=== PATIENT | male | born 1985 | race Caucasian/White ===

== ENCOUNTER 2019-07-17 07:43 | Day surgery (SDC) | payer BC ==
[2019-07-12 16:00] VITALS: BMI 33.9
[~2019-07-17 07:43] MED LIST: DEXAMETHASONE SOD PHOSPHATE 10 MG/ML 1 ML VIAL IV ONE; HEPARIN SODIUM,PORCINE 5,000 UNIT/ML 1 ML VIAL SQ ONE; LACTATED RINGERS 1,000 ML IV SCH; LIDOCAINE 1% 20 ML VIAL (10MG/ML) FOR IV START INTRADERMA PRN; MIDAZOLAM 2 MG/2 ML VIAL IV PRN; ONDANSETRON 4 MG/2 ML VIAL IVP ONE; SCOPOLAMINE 1.5MG/72HR PATCH TRANSDERM ONE
[2019-07-17] MEDS ORDERED: fentaNYL (PF) 50 MCG/ML 2 ML AMP IVP ONE (09:01)
--- NOTE | 2019-07-17 09:08 | P.GSHP ---
History of Present Illness H&P Date: 07/17/19 Chief Complaint: Incarcerated umbilical hernia This a 34-year-old male who presents today for laparoscopic robotic-assisted repair of incarcerated umbilical hernia. Past Medical History Past Medical History: Asthma, Hearing Disorder / Deafness Additional Past Medical History / Comment(s): Hx asthma as a child. "Moderate hearing loss." "Borderline hypertension." History of Any Multi-Drug Resistant Organisms: None Reported Past Surgical History: Adenoidectomy Additional Past Surgical History / Comment(s): Sinus surgery, vasectomy, vasectomy reversal. Past Anesthesia/Blood Transfusion Reactions: No Reported Reaction Past Psychological History: No Psychological Hx Reported Smoking Status: Never smoker Past Alcohol Use History: None Reported Past Drug Use History: None Reported - Past Family History Mother Family Medical History: No Reported History Medications and Allergies Home Medications Medication Instructions Recorded Confirmed Type Multivitamins, Thera [Multivitamin 1 tab PO DAILY 07/12/19 07/17/19 History (formulary)] [place]-3 Fatty Acids/Fish Oil [Fish 1 each PO DAILY 07/12/19 07/17/19 History Oil 1,000 mg Softgel] Allergies Allergy/AdvReac Type Severity Reaction Status Date / Time No Known Allergies Allergy Verified 07/17/19 07:59 Surgical - Exam Vital Signs Temp Pulse Resp BP Pulse Ox 98.3 F 84 18 134/73 96 07/17/19 08:05 07/17/19 08:05 07/17/19 08:05 07/17/19 08:05 07/17/19 08:05 - General well developed, well nourished, no distress - Eyes PERRL - ENT normal pinna - Neck no masses - Respiratory normal expansion - Cardiovascular Rhythm: regular - Abdomen Abdomen: soft, non tender Assessment and Plan Assessment: Incarcerated umbilical hernia. We'll perform laparoscopic robotic-assisted repair.
--- NOTE | 2019-07-17 09:28 | P.ANPRN ---
Procedure Note - Anesthesia - Nerve Block Performed Bilateral Rectus Abdominis Single Time Out Performed: Yes Date of Procedure: 07/17/19 Procedure Start Time: 08:42 Procedure Stop Time: 08:52 Location of Patient Procedure: PreOp Indication: Acute Post-Operative Pain, Requested by Surgeon Sedation Type: Sedate with meaningful contact maintained Preparation: Sterile Prep Position: Supine Catheter: None Needle Types: Pajunk Needle Gauge: 21 Ultrasound used to visualize needle placement: Yes Ultrasound used to observe medication spread: Yes Injectate: 0.5% Ropivacaine (see comment for volume) (20 cc + 2mg dexamethasone per side) Blood Aspirated: No Pain Paresthesia on Injection Noted: No Resistance on Injection: Normal Image Stored and Saved: Yes Events: Uneventful and Well Tolerated
[2019-07-17] MEDS ORDERED: LIDOCAINE 1% INJ 10MG/ML (20 ML MDV) ONE (09:30)
[2019-07-17] MEDS ORDERED: NEOSTIGMINE 1 MG/ML 10 ML VIAL ONE (09:30)
[2019-07-17] MEDS ORDERED: PROPOFOL 10 MG/ML 20 ML VIAL IV ONE (09:30)
[2019-07-17] MEDS ORDERED: MIDAZOLAM 2 MG/2 ML VIAL ONE (09:30)
[2019-07-17] MEDS ORDERED: ROCURONIUM BROMIDE 10 MG/ML 10 ML VIAL IV ONE (09:30)
[2019-07-17] MEDS ORDERED: DEXAMETHASONE SOD PHOSPHATE 4 MG/ML 1 ML VIAL ONE ×2 (09:30)
[2019-07-17] MEDS ORDERED: fentaNYL (PF) 50 MCG/ML 2 ML AMP ONE (09:30)
[2019-07-17] MEDS ORDERED: GLYCOPYRROLATE 0.2 MG/ML 2 ML VIAL ONE (09:30)
[2019-07-17] MEDS ORDERED: ROPIVACAINE 5 MG/ML 30 ML VIAL ONE ×2 (09:30)
[2019-07-17] MEDS ORDERED: LACTATED RINGERS 1,000 ML IV ONE ×2 (09:45)
[2019-07-17] MEDS ORDERED: BUPIVACAINE (PF) 0.25% 30 ML VIAL SQ ONE (10:02)
[2019-07-17 10:49] VITALS: TEMP 97.5
[2019-07-17] MEDS: HYDROmorphone 0.5 MG/0.5 ML SYRINGE IVP PRN ×2 (11:03→11:08)
--- NOTE | 2019-07-17 11:06 | P.OP ---
Date of Procedure: 07/17/19 Preoperative Diagnosis: Incarcerated umbilical hernia Postoperative Diagnosis: Incarcerated umbilical hernia Procedure(s) Performed: Laparoscopic robotic system repair of incarcerated umbilical hernia Anesthesia: KARSON Surgeon: Evan Stevenson Estimated Blood Loss (ml): 5 Pathology: other (Incarcerated omentum) Condition: stable Disposition: PACU Description of Procedure: The patient was placed on the operating table in the supine position. He received general anesthesia. His abdomen was prepped and draped usual fashion. Using a 5 mm optical trocar under direct visualization the peritoneal cavity was entered in the left upper quadrant. The abdomen was then insufflated. The laparoscope was placed back into the perineal cavity. Next a 8 mm robotic trocar was placed in the left lower quadrant and a 12 mm robotic trocar was placed in the left lateral position. The original 5 mm trocar was exchanged for a 8 mm robotic trocar. The patient's placed in the left side up position. And the patient was undocked the robot. The umbilical hernia was visualized. Using the cautery the incarcerated omentum was dissected free and transected. Using hook cautery the peritoneum over the umbilical hernia was excised. The fascial opening was repaired using 0V LOC sut ure. Next a piece of 11 cm round ventral light ST mesh was placed into the. Cavity and secured with 2 OV lock suture. The patient was undocked the robot. The needles were retrieved. The fascia of the 12 mm trocar site was closed with 0 Ethibond suture. Skin was closed interrupted 3-0 Monocryl suture. Dermabond dressings was applied. Patient top procedure well and was sent to recovery room stable condition.
[2019-07-17 12:53] VITALS: PULSE 67; RESP 18
[2019-07-17 12:54] VITALS: BP 123/60
== END 2019-07-17 12:56 | disposition home or self-care (01) ==
LOC: OR 07:43
PROVIDERS: ATTEND Surgery
DX: K42.0 Umbilical hernia with obstruction, without gangrene (principal); H91.90 Unspecified hearing loss, unspecified ear; R03.0 Elevated blood-pressure reading, without diagnosis of hypertension; Z98.52 Vasectomy status
CPT/HCPCS: 49653; S2900; 64488; 88302

== ENCOUNTER → 2019-08-07 | Outpatient (CLI) | payer BC ==
--- NOTE | 2019-08-07 11:08 | US ---
EXAMINATION TYPE: US abdomen limited DATE OF EXAM: 08/07/2019 COMPARISON: NONE CLINICAL HISTORY: R10.12 luq pain; Post surgical umbilical hernia. Pain in area of incision from surg lucas 07/17/2019. TECHNIQUE/FINDINGS: Grayscale imaging was performed in the patient's area of pain in the left upper q uadrant. Patient is noted to be an area of recent incision from surgical procedure of 07/17/2019. No s eroma or cystic mass is seen. No sonographic evidence of abscess. No subcutaneous edema. IMPRESSION: No postoperative seroma or abscess in the patient's area of postsurgical pain. No suspici ous sonographic finding.
== END | disposition home or self-care (01) ==
LOC: RADUSWWP 09:51
PROVIDERS: ATTEND Family Medicine
DX: R10.12 Left upper quadrant pain (principal); Z98.890 Other specified postprocedural states
CPT/HCPCS: 76705

== ENCOUNTER 2020-08-14 16:50 | Emergency (ER) | payer BC ==
[2020-08-14 16:56] VITALS: RESP 18; TEMP 99.3
[2020-08-14 17:44] LABS: Basophils # (A) 0.1 k/uL (0-0.2); Basophils % (A) 1 %; Eosinophils # (A) 0.3 k/uL (0-0.7); Eosinophils % (A) 3 %; HCT 54.6 % (39.0-53.0); HGB 17.4 gm/dL (13.0-17.5); Lymphocytes # (A) 2.4 k/uL (1.0-4.8); Lymphocytes % (A) 23 %; MCH 29.7 pg (25.0-35.0); MCHC 31.9 g/dL (31.0-37.0); Mean Platelet Volume 7.8; Monocytes # (A) 0.4 k/uL (0-1.0); Monocytes % (A) 4 %; Neutrophils # (A) 7.1 k/uL (1.3-7.7); Neutrophils % (A) 67 %; Platelet Count 309 k/uL (150-450); RBC 5.87 m/uL (4.30-5.90); RDW 12.9 % (11.5-15.5); WBC 10.5 k/uL (3.8-10.6)
[2020-08-14 17:55] LABS: ALT 56 U/L (4-49); AST 60 U/L (17-59); African American GFR (CKD) >90 (>60 ml/min/1.73 sqM); Albumin 4.5 g/dL (3.5-5.0); Alkaline Phosphatase 63 U/L (38-126); Anion Gap 11 mmol/L; Blood Urea Nitrogen 15 mg/dL (9-20); Carbon Dioxide 22 mmol/L (22-30); Chloride 105 mmol/L (98-107); Glucose 134 mg/dL (74-99); Magnesium 2.2 mg/dL (1.6-2.3); Non-African American GFR(CKD) 83 (>60 ml/min/1.73 sqM); Potassium 4.6 mmol/L (3.5-5.1); Sodium 138 mmol/L (137-145); Total Bilirubin 1.3 mg/dL (0.2-1.3); Total Protein 7.9 g/dL (6.3-8.2)
[2020-08-14 18:02] LABS: D-Dimer <0.17 mg/L FEU (<0.60); INR 1.1 (<1.2); Partial Thromboplastin Time 22.3 sec (22.0-30.0); Prothrombin Time 11.3 sec (9.0-12.0)
--- NOTE | 2020-08-14 18:50 | CT ---
EXAMINATION TYPE: CT chest angio for PE DATE OF EXAM: 08/14/2020 COMPARISON: None HISTORY: Chest pain. tachycardia CT DLP: 538.7 mGycm Automated exposure control for dose reduction was used. CONTRAST: Performed with IV Contrast, patient injected with 100 mL of Isovue 370. There are 3-D post processed images. Lung bases are clear. There is no pleural effusion. Heart size is normal. There is no pericardial eff usion. The lungs are clear of infiltrate. There is no evidence of a pulmonary mass. There is no mediastinal adenopathy. There are no hilar masses. Thoracic aorta appears normal. There i s no aneurysm or dissection. There is normal contrast opacification of the pulmonary arteries. There are no filling defects. The s ternum is intact. Thoracic spine is intact. Ribs are intact. Upper abdominal soft tissues are intact. IMPRESSION: Negative exam. No evidence of pulmonary embolism.
[2020-08-14 19:21] VITALS: BP 138/80; PULSE 100
--- NOTE | 2020-08-14 19:25 | ED ---
Chest Pain HPI - General Chief Complaint: Chest Pain Stated Complaint: Irr heart beat Source: patient Mode of arrival: ambulatory Limitations: no limitations - History of Present Illness Initial Comments: Patient is a 35-year-old male with no past medical history of presents emergency room with reported chest pain shortness of breath for the past 2 days. It patient denies any sick contacts. Does admit to recent upper respiratory infection with mild nasal congestion. Denies fevers. No contact with any Covid patients. Patient denies family history of cardiac disease or previous pulmonary issues. States he had asthma the child however does not have any inhalers at this time. No history of premature cardiac . Denies any lower extremity swelling. No history of DVT or PE. He went saw Dr. Coreas today. When he mentioned he had chest pain with some into the emergency room for further evaluation. - Related Data Home Medications Medication Instructions Recorded Confirmed Multivitamins, Thera [Multivitamin 1 tab PO DAILY 07/12/19 08/14/20 (formulary)] [place]-3 Fatty Acids/Fish Oil [Fish 1 cap PO DAILY 07/12/19 08/14/20 Oil 1,000 mg Softgel] Allergies Allergy/AdvReac Type Severity Reaction Status Date / Time No Known Allergies Allergy Verified 08/14/20 18:23 Review of Systems ROS Statement: Those systems with pertinent positive or pertinent negative responses have been documented in the HPI. ROS Other: All systems not noted in ROS Statement are negative. EKG Findings - EKG Comments: EKG Findings:: EKG did not sinus rhythm with ventricular rate of 100. ID interval 140. QRS 82. QTC 402. Inverted T-wave ST depression in 2, 3, aVF as well as V5-6. Past Medical History Past Medical History: Asthma, Hearing Disorder / Deafness Additional Past Medical History / Comment(s): Hx asthma as a child. "Moderate hearing loss." "Borderline hypertension." History of Any Multi-Drug Resistant Organisms: None Reported Past Surgical History: Adenoidectomy Additional Past Surgical History / Comment(s): Sinus surgery, vasectomy, vasectomy reversal. Past Anesthesia/Blood Transfusion Reactions: No Reported Reaction Past Psychological History: No Psychological Hx Reported Smoking Status: Never smoker Past Alcohol Use History: None Reported Past Drug Use History: None Reported - Past Family History Mother Family Medical History: No Reported History General Exam Limitations: no limitations General appearance: alert, in no apparent distress Head exam: Present: atraumatic, normocephalic, normal inspection Eye exam: Present: normal appearance, PERRL, EOMI. Absent: scleral icterus, conjunctival injection, periorbital swelling ENT exam: Present: normal exam, mucous membranes moist Neck exam: Present: normal inspection. Absent: tenderness, meningismus, lymphadenopathy Respiratory exam: Present: normal lung sounds bilaterally. Absent: respiratory distress, wheezes, rales, rhonchi, stridor Cardiovascular Exam: Present: normal rhythm, tachycardia, normal heart sounds. Absent: systolic murmur, diastolic murmur, rubs, gallop, clicks GI/Abdominal exam: Present: soft, normal bowel sounds. Absent: distended, tenderness, guarding, rebound, rigid Extremities exam: Present: normal inspection, full ROM, normal capillary refill. Absent: tenderness, pedal edema, joint swelling, calf tenderness Back exam: Present: normal inspection Neurological exam: Present: alert, oriented X3, CN II-XII intact Psychiatric exam: Present: normal affect, normal mood Skin exam: Present: warm, dry, intact, normal color. Absent: rash Course Vital Signs 08/14/20 08/14/20 08/14/20 16:53 17:30 18:00 Temperature 99.3 F Pulse Rate 107 H 109 H 109 H Respiratory 18 17 18 Rate Blood Pressure 163/96 152/98 144/83 O2 Sat by Pulse 95 99 99 Oximetry 08/14/20 19:21 Temperature Pulse Rate 100 Respiratory 18 Rate Blood Pressure 138/80 O2 Sat by Pulse 99 Oximetry Chest Pain MDM - MDM Upon arrival patient is placed in room 17. A thorough history and physical exam was performed. EKG was performed which does demonstrate some ST depression in the inferior and lateral leads. Laboratory studies were conducted. The patient is tachycardic and therefore sent over for a CT of his chest which demonstrates no signs of pulmonary embolism. Patient will be swabbed for Covid. He will be called with positive results. I did recommend hospital admission for Holter monitoring and echo due to his abnormal EKG however the patient wishes to go home at this time. I did discuss risks of leaving for which the patient understood. These include permanent disability and . He is of sound may make his own decisions. Patient needs to follow-up with Dr. Coreas for echo and Holter monitoring. Return to the emergency room for any new or worsening symptoms. Patient states her sensation Disposition Clinical Impression: Chest pain Disposition: HOME SELF-CARE Condition: Stable Instructions (If sedation given, give patient instructions): Chest Pain (ED) Additional Instructions: I recommend you follow up with Dr. Coreas. You need to have Holter monitoring and echo. Return to the emergency room for any new or worsening symptoms Is patient prescribed a controlled substance at d/c from ED?: No Referrals: Rigoberto Coreas MD [Primary Care Provider] - 1-2 days Time of Disposition: 19:22
== END 2020-08-14 20:02 | disposition home or self-care (01) ==
LOC: EC 16:50
DX: R07.9 Chest pain, unspecified (principal); R06.02 Shortness of breath; R09.81 Nasal congestion; R00.0 Tachycardia, unspecified
CPT/HCPCS: 36415; 93005; 85379; 80053; 83605; 83735; 84484; 85025; 85610; 85730; 71275; 99285; U0003; Q9967

== ENCOUNTER → 2020-08-21 | Outpatient (CLI) | payer BC | END | disposition home or self-care (01) | LOC: RADECHMAIN 12:02 | PROVIDERS: ATTEND Family Medicine | DX: I49.8 Other specified cardiac arrhythmias (principal); R00.0 Tachycardia, unspecified | CPT/HCPCS: 93225; 93226 ==